=== PATIENT | male | born 1955 | race African-American/Black ===

== ENCOUNTER 2019-12-22 17:56 | Emergency (ER) | payer SELFPAY ==
[~2019-12-22] VITALS: Ht 188 cm; Wt 81.6 kg
[2019-12-22 18:34] VITALS: BP 140/78
[2019-12-22] MEDS ORDERED: Methocarbamol 500mg tab ORAL ONE (18:45)
[2019-12-22] MEDS ORDERED: oxyCODONE HCL/Acetaminophen 5/325mg ORAL ONE (18:45)
--- NOTE | 2019-12-22 19:39 | Diagnostic Imaging Report ---
Indication: Back pain Technique: Continuous helical transaxial imaging of the lumbar spine was obtained. Coronal 2-D reformats were also obtained. Study obtained in a Siemens sensation [address] Total Dose length Product (DLP): 248.[address] Dose Index Volume (CTDIvol): 0.2 mGy Comparison: None Findings: There is no evidence of an acute fracture or malalignment. Height and configuration of the vertebral bodies are within normal limits. There is mild narrowing of the intervertebral disc at L3-4 and at L4-5. The facets are unremarkable. There is no soft tissue swelling. Impression: No acute injury. Mild disc disease at L3-4 and L4-5. [facility] has communicated the preliminary results to the Emergency Department. Their findings are largely concordant with this report. The CT scanner at [facility] is accredited by the [employer] and the scans are performed using dose optimization techniques as appropriate to a performed exam including Automatic Exposure control.
--- NOTE | 2019-12-22 20:00 | NUR ---
ED Nurse Note: pt presents to ED c/o bilat leg pain that is chronic for him. it has worsened in the last couple days, pt denies any recent trauma or injury to areas. recieved pt in bed, sleeping, no acute distress ntoed
[2019-12-22] MEDS ORDERED: PERCOCET 5-3251 EACH ORAL (20:02)
--- NOTE | 2019-12-22 20:08 | Emergency Room Report ---
History of Present Illness General Chief Complaint: General Complaint Source: Patient Present Illness HPI Patient is a 64-year-old male past medical history of back pain who presents to the ER complaining of exacerbation of his back pain for the past 2 days. Patient states that he initially had back pain many years ago after a fall. He states that the pain radiates down the back of his right leg. He denies any recent trauma. He denies any fever or chills. He denies any changes to his bowel or bladder habits. He denies any fever, rash or IV drug use. Patient came in by EMS. Patient states that he used to take Tylenol 3 for this pain but that he does not have anymore. COVID-19 risk:Contact w/high r: No COVID-19 risk:Travel to affect: No Has patient experienced nair: No Allergies: Coded Allergies: No Known Allergies (Unverified , 12/22/19) Patient History Reviewed Nursing Documentation: PMH: Agreed; PSxH: Agreed Nursing Documentation-PMH Past Medical History: No Stated History Review of Systems All Other Systems: negative except mentioned in HPI Physical Exam Vital Signs Date Time Temp Pulse Resp B/P (MAP) Pulse Ox O2 Delivery O2 Flow Rate FiO2 12/22/19 18:15 99.3 84 16 140/78 (98) 98 Room Air Sp02 EP Interpretation: reviewed, normal General Appearance: no apparent distress, alert, GCS 15, non-toxic Head: normocephalic, atraumatic Eyes: bilateral eye normal inspection, bilateral eye PERRL ENT: hearing grossly normal, normal pharynx, no angioedema, normal voice Neck: full range of motion, supple/symm/no masses Respiratory: chest non-tender, lungs clear, normal breath sounds, speaking full sentences Cardiovascular #1: regular rate, rhythm, no edema Gastrointestinal: normal bowel sounds, non tender, soft, non-distended, no guarding, no rebound Rectal: other - able to squeeze buttocks together with good strength Musculoskeletal: other - no saddle anesthesia, bl LE 5/5 motor strenghth, + straigh leg test RLE at 45 degrees, and Ever L3 and L4 with no step-offs Neurologic: alert, motor strength/tone normal, oriented x3, sensory intact, responsive, speech normal Reflexes: 3+ knee (R), 3+ knee (L) Skin: no rash Lymphatic: no adenopathy Medical Decision Making Diagnostic Impression: Primary Impression: Sciatica ER Course Patient CT demonstrates old T12 fracture. States he had old fracture. Patient given pain medication in the ER with improvement of symptoms. I suspect the back pain that the patient is presenting with is non-emergent in etiology. Regarding the history, the patient denies gradual onset, trauma, fevers, night sweats, history of malignancy, pain worse at night, IVDU or refractory pain. Given these pertinent negatives in the history an emergent cause of the back pain is less likely. Also doubt cardiovascular cause of back pain such as aortic dissection or ruptured abdominal aortic aneurysm given patient with equal pulses in all 4 extremities with no diastolic murmur, or pulsatile abdominal mass. Epidural abscess considered unlikely given no fever or history of IVDU. The patient does not have history of malignancy so doubt metastasis to bone. Also doubt caudaequina syndrome since patient with no history of urinary/ fecal incontinence or focal weakness or change in sensation. The patient was counseled that, though unlikely, the possibility of an emergent cause of back pain may still be present and that the patient should return immediately if symptoms persists or worsen. I believe the patient is stable for discharge to follow-up with their PMD for further workup and possible MRI. Last Vital Signs Date Time Temp Pulse Resp B/P (MAP) Pulse Ox O2 Delivery O2 Flow Rate FiO2 12/22/19 18:15 99.3 84 16 140/78 (98) 98 Room Air Disposition: HOME, SELF-CARE Condition: Stable Scripts Oxycodone/Acetaminophen 5-325* (PERCOCET 5-325 MG TABLET*) 1 Each Tablet 1 TAB ORAL Q8H PRN for For Pain, #12 TAB 0 Refills Prov: Shruthi Bolanos M.D. 12/22/19 Referrals: [facility] De[facility] Ferrer [facility] Patient Instructions: Sciatica, [id number] Additional Instructions: The patient was provided with discharge instructions, notified to follow-up with a primary care doctor and or specialist in the next 24-48 hours, and to return to the ED if they have worsening of their symptoms. Please note that this report is being documented using [employer] technology. This can lead to erroneous entry secondary to incorrect interpretation by the dictating instrument. Shruthi Bolanos M.D. Dec 22, 2019 20:08
[2019-12-22 20:20] VITALS: BP 140/78
--- NOTE | 2019-12-22 20:20 | NUR ---
ER DISCHARGE NOTE: Patient is cleared to be discharged per ERMD, pt is aox4, on room air, with stable vital signs. pt was given dc and prescription instructions, pt was able to verbalize understanding, pt id band removed without complications. pt is able to ambulate with steady gait. pt took all belongings.
== END 2019-12-22 20:20 | disposition home or self-care (01) ==
LOC: EDBD 17:56 → EMR 19:00
DX: M54.30 Sciatica, unspecified side (principal)
CPT/HCPCS: 72131; 99284